=== PATIENT | female | born 1985 | race Caucasian/White ===

== ENCOUNTER 2021-08-10 15:07 | Emergency (ER) | payer OTHER ==
[~2021-08-10] VITALS: Ht 162.6 cm; Wt 63.5 kg
[2021-08-10] MEDS ORDERED: KETOROLAC TROMETHAMINE 30 MG/ML VIAL IV STA (16:18)
[2021-08-10] MEDS ORDERED: SODIUM CHLORIDE 0.9% 1000ML 1,000 ML IV SCH (16:30)
[2021-08-10] MEDS ORDERED: DIPHENHYDRAMINE HCL INJ 50 MG/ML VIAL IV ONE (16:30)
[2021-08-10] MEDS ORDERED: METOCLOPRAMIDE HCL 10 MG/2ML VIAL IV ONE (16:30)
[2021-08-10] MEDS ORDERED: DIPHENHYDRAMINE HCL INJ 50 MG/ML VIAL ONE (16:38)
[2021-08-10] MEDS ORDERED: METOCLOPRAMIDE HCL 10 MG/2ML VIAL ONE (16:38)
[2021-08-10] MEDS ORDERED: SODIUM CHLORIDE 0.9% 1000ML 1,000 ML ONE (16:39)
[2021-08-10] MEDS ORDERED: KETOROLAC TROMETHAMINE 30 MG/ML VIAL ONE (16:39)
[2021-08-10] MEDS ORDERED: CYCLOBENZAPRINE5 MG PO (17:09)
== END 2021-08-10 17:12 | disposition home or self-care (01) ==
LOC: ER 16:12
DX: R51.9 Headache, unspecified (principal); R11.0 Nausea; M62.830 Muscle spasm of back
CPT/HCPCS: 99283; J1200; J1885; J2765; J7030

== ENCOUNTER → 2022-02-24 | Day surgery (SDC) | payer OTHER ==
[2022-02-23 14:33] LABS: BASOPHILS % 0.3 % (0.0-1.0); EOSINOPHILS # (AUTO) 0.3 (0.0-0.4); EOSINOPHILS % 4.2 % (0.0-6.0); HEMATOCRIT 40.2 % (34.2-44.1); HEMOGLOBIN 13.2 g/dL (12.0-16.0); LYMPHOCYTES % 29.5 % (18.0-39.1); MEAN CORPUSCULAR HEMOGLOBIN 32.1 pg (28-32); MEAN CORPUSCULAR HGB CONC 32.8 g/dL (31-35); MEAN CORPUSCULAR VOLUME 97.8 fL (81-99); MONOCYTES # (AUTO) 0.4 (0.2-0.8); MONOCYTES % 5.5 % (4.4-11.3); NEUTROPHILS % 60.4 % (38.7-80.0); PLATELET COUNT 264 x10e3/uL (140-360); RED BLOOD COUNT 4.11 x10e6/uL (3.6-5.1); RED CELL DISTRIBUTION WIDTH 12.8 % (11.7-14.4)
[2022-02-23 14:50] LABS: ALBUMIN 3.7 g/dL (3.5-5.0); ALBUMIN/GLOBULIN RATIO 1.1 (0.8-2.0); ANION GAP 12.5 mmol/L (8-16); CALCIUM 8.3 mg/dL (8.4-10.2); CREATININE, SERUM 0.86 mg/dL (0.57-1.11); POTASSIUM 4.5 mmol/L (3.5-5.1)
[~2022-02-24] MED LIST: BC POWDER PACK1 EAC1 PO; CYCLOBENZAPRINE5 MG PO; DULCOLAX10 MG PO; DULCOLAX10 MG PR; HYDROCODON-ACE1 EAC9 PO; LIDOCAINE HCL 2% LOCAL INJ 5 ML SDV VIAL INJ ONE; MIDAZOLAM HCL 2 MG/2 ML VIAL ONE; POVIDONE IODINE 0.05% 0.05 % ML PO ONE; PROPOFOL IV EMULSION 10 MG/ML 20 ML VIAL ONE
[2022-02-24 10:50] VITALS: BP 139/88
== END | disposition home or self-care (01) ==
LOC: OR 07:23
PROVIDERS: ATTEND Surgery
DX: K62.5 Hemorrhage of anus and rectum (principal); D12.4 Benign neoplasm of descending colon; K64.8 Other hemorrhoids; K62.89 Other specified diseases of anus and rectum; G43.909 Migraine, unspecified, not intractable, without status migrainosus; F17.290 Nicotine dependence, other tobacco product, uncomplicated; Z01.812 Encounter for preprocedural laboratory examination; Z20.822 Contact with and (suspected) exposure to COVID-19; Z79.82 Long term (current) use of aspirin; Z79.899 Other long term (current) drug therapy
CPT/HCPCS: 36415; 45385; 80053; 81025; 85025; 88305; J2001; J2250; J2704; U0002

== ENCOUNTER 2022-03-17 07:51 | Observation (INO) | payer OTHER ==
[~2022-03-17] VITALS: Ht 162.6 cm; Wt 68.0 kg
[~2022-03-17 07:51] MED LIST changes: -LIDOCAINE HCL 2% LOCAL INJ 5 ML SDV VIAL INJ ONE; -MIDAZOLAM HCL 2 MG/2 ML VIAL ONE; +OMEPRAZOLE40 MG PO; -POVIDONE IODINE 0.05% 0.05 % ML PO ONE; -PROPOFOL IV EMULSION 10 MG/ML 20 ML VIAL ONE
[2022-03-17] MEDS ORDERED: BUPIVACAINE HC 0.75% PF 10ML VIAL INJ ONE (08:28)
[2022-03-17] MEDS ORDERED: LIDOCAINE 1% W/EPINEPHRINE 20 ML VIAL ONE (08:28)
[2022-03-17] MEDS ORDERED: LIDOCAINE HCL 2% JELLY 5 ML TUBE ONE (08:28)
[2022-03-17] MEDS ORDERED: FENTANYL CITRATE/PF 100MCG/2 ML INJ ONE ×2 (10:44→13:50)
[2022-03-17] MEDS ORDERED: KETOROLAC TROMETHAMINE 30 MG/ML VIAL IV PRN (10:45)
[2022-03-17] MEDS ORDERED: ONDANSETRON HCL INJ 2MG/ML 2ML 2 MG/ML VIAL IV PRN (10:45)
[2022-03-17] MEDS ORDERED: Morphine 2mg Syringe 2 MG/ML SYR ONE (12:30)
[2022-03-17] MEDS: HYDROCODONE/APAP 7.5MG-325MG 1 EA TAB PO PRN (12:37)
[2022-03-17] MEDS ORDERED: MIDAZOLAM HCL 2 MG/2 ML VIAL ONE (13:50)
[2022-03-17 14:02] VITALS: BP 106/71
[2022-03-17 14:44] VITALS: BP 106/71
[2022-03-17 14:45] VITALS: BP 106/71
[2022-03-17] MEDS: SODIUM CHLORIDE 0.9% 1000ML 1,000 ML IV SCH ×2 (16:03→19:56)
[2022-03-17] MEDS ORDERED: DEXAMETHASONE SOD PHOS INJ 4 MG/ML SDV ONE (17:12)
[2022-03-17] MEDS ORDERED: ONDANSETRON HCL INJ 2MG/ML 2ML 2 MG/ML VIAL ONE (17:12)
[2022-03-17] MEDS ORDERED: LIDOCAINE HCL 2% LOCAL INJ 5 ML SDV VIAL INJ ONE (17:12)
[2022-03-17] MEDS ORDERED: PROPOFOL IV EMULSION 10 MG/ML 20 ML VIAL ONE (17:12)
[2022-03-17] MEDS ORDERED: SEVOFLURANE INHAL SOLN 250 ML PEN BTL ONE (17:12)
[2022-03-17] MEDS ORDERED: POVIDONE IODINE 0.05% 0.05 % ML PO ONE (17:12)
[2022-03-17] MEDS: HYDROMORPHONE 1MG/1ML INJ IV PRN (19:52)
[2022-03-17 20:00] VITALS: BP 98/66
[2022-03-17 20:44] VITALS: BP 98/66
[2022-03-18] VITALS: BP 104/66
[2022-03-18] MEDS: HYDROMORPHONE 1MG/1ML INJ IV PRN (01:09)
[2022-03-18 04:00] VITALS: BP 98/66
[2022-03-18] MEDS: HYDROCODONE/APAP 7.5MG-325MG 1 EA TAB PO PRN ×3 (04:00→12:20)
[2022-03-18] MEDS: SODIUM CHLORIDE 0.9% 1000ML 1,000 ML IV SCH ×2 (06:45→08:21)
[2022-03-18 07:55] VITALS: BP 105/55
[2022-03-18 08:54] VITALS: BP 105/55
[2022-03-18 08:57] VITALS: BP 105/55
[2022-03-18 11:24] VITALS: BP 103/63
== END 2022-03-18 12:26 | disposition home or self-care (01) ==
LOC: OR 07:51 → PACU V 10:33 → MED/SURG 13:23
PROVIDERS: ADMIT Surgery; ATTEND Surgery
DX: K64.8 Other hemorrhoids (principal); G89.29 Other chronic pain; Z20.822 Contact with and (suspected) exposure to COVID-19
CPT/HCPCS: 0223U; 36415; 46260; 81025; 88304; G0378 ×2; J1100; J1170 ×2; J1885; J2001 ×2; J2250; J2270; J2405; J2704; J3010; J7030

== ENCOUNTER 2023-08-02 12:57 | Outpatient (RCR) | payer OTHER | END 2023-08-23 | LOC: PT 12:57 | PROVIDERS: ATTEND Neurological Surgery | DX: M51.16 Intervertebral disc disorders with radiculopathy, lumbar region (principal) ==